=== PATIENT | male | born 1995 | race Caucasian/White ===

== ENCOUNTER 2023-11-07 23:20 | Emergency (ER) | payer BC ==
[~2023-11-07] VITALS: Ht 182.9 cm; Wt 84.1 kg
[2023-11-07 23:30] VITALS: TEMP 98.3
[2023-11-07] MEDS ORDERED: Famotidine 20 MG TAB PO ONE (23:45)
[2023-11-07] MEDS ORDERED: diphenhydrAMINE 2%/Zinc Acetate 0.1% Cream 28.3 GM TUBE TP ONE (23:45)
[2023-11-08 00:06] VITALS: BP 132/81; PULSE 75
== END 2023-11-08 00:06 | disposition home or self-care (01) ==
LOC: COL.ER 23:20
DX: T63.441A Toxic effect of venom of bees, accidental (unintentional), initial encounter (principal)